=== PATIENT | male | born 1955 | race Caucasian/White ===

== ENCOUNTER 2019-04-20 19:17 | Emergency (ER) | payer MEDICARE ==
[~2019-04-20] VITALS: Ht 185.4 cm; Wt 127.0 kg
[2019-04-20] MEDS ORDERED: LISI5 PO (20:56)
[2019-04-20] MEDS ORDERED: TRAZODONE HYDROCHLOR PO (20:57)
[2019-04-20] MEDS ORDERED: IBUP600 PO (21:01)
[2019-04-20] MEDS ORDERED: Keflex500 MG PO (21:01)
[2019-04-20] MEDS ORDERED: Norco 5-325 Ta1 EACH PO (21:01)
== END 2019-04-20 22:15 | disposition home or self-care (01) ==
LOC: ER 19:17
DX: S62.633A Displaced fracture of distal phalanx of left middle finger, initial encounter for closed fracture (principal); S61.203A Unspecified open wound of left middle finger without damage to nail, initial encounter; W22.8XXA Striking against or struck by other objects, initial encounter; Z79.899 Other long term (current) drug therapy; I10 Essential (primary) hypertension; F32.9 Major depressive disorder, single episode, unspecified
CPT/HCPCS: 11730; 73130; 90471; 90714; 96365-59; 99283-25; A9270; J0690